=== PATIENT | male | born 1980 | race Hispanic/Latino ===

== ENCOUNTER 2018-07-03 13:16 | Emergency (ER) | payer SELFPAY ==
[2018-07-03] MEDS ORDERED: Acetaminophen 500 MG TAB ONE (14:01)
[2018-07-03] MEDS ORDERED: Ibuprofen 800 MG TAB ONE (14:01)
--- NOTE | 2018-07-03 14:23 | CT ---
CT OF BRAIN PERFORMED WITHOUT CONTRAST ENHANCEMENT: Date: 07/03/18 HISTORY: Head injury. FINDINGS: The ventricular and cisternal system is within normal limits. There are no signs of intracerebral hem orrhage or extra-axial fluid collections. The mastoid air cells and visualized sinuses are clear. IMPRESSION: No acute intracranial abnormalities. POS: [facility]
--- NOTE | 2018-07-03 14:26 | CT ---
CT CERVICAL SPINE PERFORMED WITHOUT CONTRAST ENHANCEMENT: Date: 07/03/18 HISTORY: Neck pain status post fall. FINDINGS: The vertebral bodies are normal in height. Disc spaces all appear well preserved and the facets are i n normal alignment. There is no evidence of canal or foraminal stenosis. There is no CT evidence for fracture. The lung apices appear clear. IMPRESSION: No CT evidence of fracture of the cervical spine. POS: [facility]
== END 2018-07-03 14:07 | disposition home or self-care (01) ==
LOC: BURERS 13:16
DX: S16.1XXA Strain of muscle, fascia and tendon at neck level, initial encounter (principal); S09.90XA Unspecified injury of head, initial encounter; E11.9 Type 2 diabetes mellitus without complications; Z79.84 Long term (current) use of oral hypoglycemic drugs; W18.2XXA Fall in (into) shower or empty bathtub, initial encounter
CPT/HCPCS: 70450; 72125